=== PATIENT | male | born 1980 | race Two or more races ===

== ENCOUNTER 2019-02-23 10:59 | Emergency (ER) | payer SELFPAY ==
[~2019-02-23] VITALS: Ht 180.3 cm; Wt 90.7 kg
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
[2019-02-23] MEDS ORDERED: HYDR-3164 PO (11:41)
[2019-02-23] MEDS ORDERED: SILV20CR14 TP (11:41)
[2019-02-23] MEDS ORDERED: CEPH500T PO (11:41)
[2019-02-23] MEDS ORDERED: HYDROcodone/APAP 5/325MG 1 TAB TABLET PO ONE (11:45)
[2019-02-23] MEDS ORDERED: DIPHTH,PERTUSS(ACELL),TET TOX 0.5 ML DISP.SYRIN. VAX IM ONE (11:45)
[2019-02-23] MEDS ORDERED: silver sulfADIAZINE 1% CREAM 25GM TUBE. TP ONE (11:45)
[2019-02-23 11:48] VITALS: BP 149/99
== END 2019-02-23 11:52 | disposition home or self-care (01) ==
LOC: ER 10:59
DX: T24.321A Burn of third degree of right knee, initial encounter (principal); T25.391A Burn of third degree of multiple sites of right ankle and foot, initial encounter; X14.1XXA Other contact with hot air and other hot gases, initial encounter; Y93.89 Activity, other specified; Y92.89 Other specified places as the place of occurrence of the external cause; Y99.8 Other external cause status
CPT/HCPCS: 16020; 90471; 90715; 99283; 99284